=== PATIENT | female | born 1955 | race Caucasian/White ===

== ENCOUNTER → 2020-03-10 13:31 | Outpatient (CLI) | payer OTHER, SELFPAY ==
--- NOTE | ~2020-03-10 | DEXA_ITS ---
Bone Density Report Name: Jocelyn Bhatt Age: 64 Sex: Female Ethnicity: White Date of : 1955 Indication: postmenopausal; screening for osteoporosis; height loss; cancer; asthma or emphysema; hysterectomy; Referring Provider: Karen, Reji Study: Bone densitometry was performed. Exam Date: March 10, 2020 Accession number: [id number] Bone Density: Region BMD T-score Z-score Classification AP Spine (L1-L4) 0.859 -1.7 0.0 Osteopenia Femoral Neck (Left) 0.716 -1.2 0.3 Osteopenia Total Hip (Left) 0.789 -1.3 -0.1 Osteopenia Femoral Neck (Right) 0.701 -1.3 0.1 Osteopenia Total Hip (Right) 0.795 -1.2 0.0 Osteopenia Total Hip Mean 0.792 -1.3 -0.1 Osteopenia World Health Organization criteria for BMD impression classify patients as: Normal (T-score at or above -1.0), Osteopenia (T-score between -1.0 and -2.5), or Osteoporosis (T-score at or below -2.5). 10-year Fracture Risk(1): Major Osteoporotic Fracture 8.2% Hip Fracture 0.7% Reported Risk Factors: [place] (), Neck BMD=0.701, BMI=27.3 (1) FRAX(R) Version 3.08. Fracture probability calculated for an untreated patient. Fracture probability may be lower if the patient has received treatment. Clinical Information Provided by Patient: Has used the following medications: Vitamin D, Calcium Has the following medical conditions: Asthma or Emphysema, Cancer, Hysterectomy Patient maximum height was 65 Menopause Age: 43 Drinks caffeinated beverages Onset of menses at age 14 Number of children 5 Impression: The patient has low bone mass, based on the Total Spine T-score. The patient has an estimated ten-year risk of hip fracture of 0.7% and an estimated ten-year risk of major fracture of 8.2%, based on the WHO FRAX algorithm. Discussion: BONE DENSITY IS LOW AT ONE OR MORE SKELETAL SITES. This patient's lowest T-score is low at one or more skeletal sites. It meets the World Health Organization's (WHO) criteria for ?low bone mass? (T-score between -1.0 and -2.5). The patient's 10-year risk of fracture as calculated by FRAX is less than the threshold where pharmacological therapy is recommended by the National Osteoporosis Foundation (NOF). However, all treatment decisions require clinical judgment and consideration of individual patient factors, including patient preferences, comorbidities, previous drug use, risk factors not captured in the FRAX model (e.g., frailty, falls, vitamin D deficiency, increased bone turnover, interval significant decline in bone density) and possible under or overestimation of fracture risk by FRAX. The patient should follow a healthful lifestyle (good nutrition with adequate calcium and vitamin D, and appropriate weight-bearing exercise). Follow-Up: Consider repeating this study in 2 to 3 years to reassess
== END ==
PROVIDERS: PCP Physician Assistant; Visit Provider Physician Assistant
DX: Z78.0 Asymptomatic menopausal state (principal); M85.88 Other specified disorders of bone density and structure, other site; M85.852 Other specified disorders of bone density and structure, left thigh; M85.851 Other specified disorders of bone density and structure, right thigh
CPT/HCPCS: 77080

== ENCOUNTER → 2022-01-30 08:12 | Outpatient (CLI) | payer OTHER, SELFPAY ==
--- NOTE | ~2022-01-30 | XR_ITS ---
XR abdomen/kub 1V 01/30/2022 08:32 INDICATION: Left renal stone TECHNIQUE: KUB COMPARISON: CT dated 01/30/2022 FINDINGS: Bowel gas pattern is normal. There is no evidence of free air, mass, organomegaly, ascites or obstruction. No abnormal calculi are seen. There is a radiodensity in the right mid abdomen, lik kyler bowel content. There are surgical changes in the left lower chest and upper abdomen. The bones ap pear intact. IMPRESSION: 1: No acute abdominal abnormality identified. Reviewed, dictated and finalized at location B.
--- NOTE | ~2022-01-30 | CT_ITS ---
EXAMINATION: CT abdomen pelvis wo con DATE: 01/30/2022 08:26 INDICATION: Left renal stone. Frequent UTI. TECHNIQUE: Computed tomography (CT) of the head was performed without intravenous contrast. The dose- length product was 327.65 mGy-cm. Automated exposure control and iterative reconstruction technique w ere employed. COMPARISON: None FINDINGS: No significant pleural or pericardial effusion. Heart size normal. Large hiatal hernia with organoaxial volvulus. No obstruction. Mild atherosclerosis without aneurysm. Small fat-containing le ft inguinal hernia. No free air or free fluid. The liver, spleen, pancreas, adrenal glands and kidneys are unremarkable. Gallbladder is present. Non obstructive bowel gas pattern. There is abnormal thickening of the sigmoid colon. No definite obstruc tion. No renal stones or hydronephrosis. IMPRESSION: 1. Abnormal thickening of the sigmoid colon, suspicious for colitis, most likely infectious or inflam matory. 2: Large hiatal hernia with organoaxial gastric volvulus. Reviewed, dictated and finalized at location B. IMPRESSION: 1. Abnormal thickening of the sigmoid colon, suspicious for colitis, most likel y infectious or inflammatory. 2: Large hiatal hernia with organoaxial gastric volvulus.
== END ==
PROVIDERS: PCP Physician Assistant; Visit Provider Urology
DX: N20.0 Calculus of kidney (principal); K44.9 Diaphragmatic hernia without obstruction or gangrene; R93.3 Abnormal findings on diagnostic imaging of other parts of digestive tract
CPT/HCPCS: 74018; 74176

== ENCOUNTER 2024-04-27 08:47 | Outpatient (CLI) | payer OTHER, SELFPAY ==
--- NOTE | 2024-04-27 | EST_ITS ---
Patient Info Name: Jocelyn Bhatt Age: 69 years : 1955 Gender: Female Ht: 64 in Wt: 163 lbs BSA: 1.85 m2 HR: 101 bpm BP: 148 / 83 mmHg Exam Date: 04/27/2024 9:52 AM Exam Location: [facility] Patient Status: Outpatient Admit Date: 04/27/2024 Staff Ordering Physician: KarenBetsy PA-C Attending Provider: KarenBetsy PA-C Exercise Technologist: Kim [place] [employer] Nurse: Nirmala Anguiano APN Exam Type: CA stress felisha w NM Study Info A regadenoson stress test was performed. Summary 1. No abnormal ST/T wave changes diagnostic of ischemia with Lexiscan. 2. Please correlate with nuclear medicine images, reported separately. 3. Stress test supervised by Nirmala Anguiano NP. Stress test interpreted by Micheline Guthrie MD. Protocol: Lexiscan Stress ECG Details Stage: REST Duration (min): 2 min : 12 sec HR (bpm): 61 SBP (mmHg): 148 DBP (mmHg): 83 Stage: REST Duration (min): 28 min : 13 sec HR (bpm): 65 SBP (mmHg): 148 DBP (mmHg): 83 Stage: STAGE 1 Duration (min): 1 min : 0 sec HR (bpm): 75 SBP (mmHg): 148 DBP (mmHg): 83 Stage: RECOVERY Duration (min): 1 min : 0 sec HR (bpm): 83 SBP (mmHg): 148 DBP (mmHg): 83 Stage: RECOVERY Duration (min): 2 min : 0 sec HR (bpm): 82 SBP (mmHg): 171 DBP (mmHg): 86 Stage: RECOVERY Duration (min): 3 min : 0 sec HR (bpm): 81 SBP (mmHg): 171 DBP (mmHg): 85 Stage: RECOVERY Duration (min): 3 min : 17 sec HR (bpm): 80 SBP (mmHg): 171 DBP (mmHg): 85 Rest HR: 65 bpm Peak HR: 84 bpm Rest Sys BP: 148 mmHg Peak Sys BP: 171 mmHg Max Pred HR: 152 bpm % Max Pred HR: 55 % Target HR: 129 bpm Max RPP: 14,364 bpm*mmHg Total Time: 1 min : 0 sec Rest Cao BP: 83 mmHg Peak Cao BP: 86 mmHg Total Dose: 0.4 mg Resting ECG Sinus rhythm. Stress ECG Sinus rhythm. No abnormal ST/T wave changes diagnostic of ischemia with Lexiscan. Arrhythmias None. Report Signatures
--- NOTE | ~2024-04-27 | NM_ITS ---
EXAMINATION: NM felisha stress w perfusion DATE: 04/27/2024 11:10 INDICATION: Dyspnea on exertion TECHNIQUE: Rest images were obtained following intravenous administration of 9.7 mCi Tc99m tetrofosmi n (Myoview). The patient was infused intravenously with Lexiscan (Regadenoson). Then, 30.2 mCi Tc99m tetrofosmin (Myoview) was administered intravenously, and stress images were obtained. Stress images were obtained in both the supine and prone positions. Data was reconstructed into short axis and hori zontal and vertical long axis SPECT images. Gated SPECT images were also obtained. COMPARISON: None. FINDINGS: There is a mild reversible perfusion defect at the apical, apical anterior and apical later al segments on the nongated post stress images obtained in the supine position. This normalizes in th e apical lateral segment and nearly normalizes in the apical and apical anterior segments on the gate d and prone nongated images equivocal for mild ischemia. There is normal left ventricular chamber si ze, wall motion and ejection fraction. Left ventricular ejection fraction measures >70%. IMPRESSION: 1. Possible small mild reversible perfusion defect equivocal for ischemia at the apical and small por tion of the anteroapical segments. 2. Left ventricular ejection fraction measuring >70%. Reviewed, dictated and finalized at location B. TECHNIC TEACHER IMPRESSION: 1. Possible small mild reversible perfusion defect equivocal for ischemia at th e apical and small portion of the anteroapical segments. 2. Left ventricular ejection fraction measuring >70%.
== END 2024-04-27 08:48 | disposition home or self-care (01) ==
PROVIDERS: PCP Physician Assistant; Visit Provider Physician Assistant
DX: I50.1 Left ventricular failure, unspecified (principal)
CPT/HCPCS: 78452; 93017; A9502; J2785

== ENCOUNTER 2024-10-28 13:33 | Outpatient (CLI) | payer OTHER, SELFPAY ==
--- NOTE | ~2024-10-28 | US_ITS ---
Renal-Bladder ultrasound Clinical History: Elevated creatinine Technique: Real-time sonographic imaging of the kidneys and urinary bladder was performed. Findings: The right kidney measures 9.7 cm in length and the left kidney measures 10.0 cm. There is n o hydronephrosis or renal calculus identified. Renal cortical echogenicity is within normal limits. N o renal mass lesion is identified. The urinary bladder is moderately distended at the time of this exam. No intraluminal echoes are iden tified. No abnormal wall thickening is seen. Impression: Unremarkable ultrasound of the kidneys and urinary bladder. Reviewed, dictated and finalized at location M. Impression: Unremarkable ultrasound of the kidneys and urinary bladder.
== END 2024-10-28 13:34 | disposition home or self-care (01) ==
LOC: MICIMG 13:34
PROVIDERS: PCP Physician Assistant; Visit Provider Physician Assistant
DX: R79.89 Other specified abnormal findings of blood chemistry (principal)
CPT/HCPCS: 76775

== ENCOUNTER 2024-12-22 13:29 | Outpatient (CLI) | payer MEDICARE, OTHER, SELFPAY ==
--- NOTE | ~2024-12-22 | DEXA_ITS ---
Bone Density Report Name: MARTINEZ HOPPER Age: 69 Sex: Female Ethnicity: White Date of : 1955 Indication: osteopenia; height loss; cancer; hysterectomy; Referring Provider: NITO, JUICE Study: Bone densitometry was performed. Exam Date: December 22, 2024 Accession number: [id number] Bone Density: Region BMD T-score Z-score Classification AP Spine(L1-L4) 0.809 -2.2 -0.1 Osteopenia Femoral Neck (Left) 0.599 -2.2 -0.5 Osteopenia Total Hip (Left) 0.733 -1.7 -0.3 Osteopenia Femoral Neck (Right) 0.605 -2.2 -0.5 Osteopenia Total Hip (Right) 0.720 -1.8 -0.4 Osteopenia Total Hip Mean 0.726 -1.8 -0.4 Osteopenia World Health Organization criteria for BMD impression classify patients as: Normal (T-score at or above -1.0), Osteopenia (T-score between -1.0 and -2.5), or Osteoporosis (T-score at or below -2.5). 10-year Fracture Risk(1): Major Osteoporotic Fracture 12% Hip Fracture 2.5% Reported Risk Factors: [place] (), Neck BMD=0.599, BMI=29.3 (1) FRAX(R) Version 3.08. Fracture probability calculated for an untreated patient. Fracture probability may be lower if the patient has received treatment. Previous Exams: -- Region Exam Age BMD T-score BMD Change BMD Change Date g/cm2 vs Baseline vs Previous -- AP Spine (L1-L4) 12/22/2024 69 0.809 -2.2 -5.8%* -5.8%* 03/10/2020 64 0.859 -1.7 Total Hip(Left) 12/22/2024 69 0.733 -1.7 -7.1%* -7.1%* 03/10/2020 64 0.789 -1.3 Total Hip(Right) 12/22/2024 69 0.720 -1.8 -9.5%* -9.5%* 03/10/2020 64 0.795 -1.2 -- *Denotes significance at 95% confidence level, LSC for AP Spine = 0.022 g/cm2, LSC for Total Hip = 0.027 g/cm2 Clinical Information Provided by Patient: Has used the following medications: Vitamin D Has the following medical conditions: Cancer, Hysterectomy, HX OF LEFT BREAST CA MASTECTOMY -2004 WITH RADIATION AND CHEMO Patient maximum height was 64.0 Menopause Age: 43 No regular weight bearing exercise Does not regularly consume dairy products Drinks caffeinated beverages Onset of menses at age 13 Number of children 5 Impression: The patient has low bone mass, based on the Total Spine T-score. The patient has an estimated ten-year risk of hip fracture of 2.5% and an estimated ten-year risk of major fracture of 12%, based on the WHO FRAX algorithm. The BMD for the AP Spine (L1-L4) decreased, changing by -5.8% since the last DXA exam. The BMD for the Total Hip(Left) decreased, changing by -7.1% since the last DXA exam. The BMD for the Total Hip(Right) decreased, changing by -9.5% since the last DXA exam. Discussion: BONE DENSITY IS LOW AT ONE OR MORE SKELETAL SITES. This patient's lowest T-score is low at one or more skeletal sites. It meets the World Health Organization's (WHO) criteria for ?low bone mass? (T-score between -1.0 and -2.5). The patient's 10-year risk of fracture as calculated by FRAX is less than the threshold where pharmacological therapy is recommended by the National Osteoporosis Foundation (NOF). However, all treatment decisions require clinical judgment and consideration of individual patient factors, including patient preferences, comorbidities, previous drug use, risk factors not captured in the FRAX model (e.g., frailty, falls, vitamin D deficiency, increased bone turnover, interval significant decline in bone density) and possible under or overestimation of fracture risk by FRAX. The patient should follow a healthful lifestyle (good nutrition with adequate calcium and vitamin D, and appropriate weight-bearing exercise). Follow-Up: Consider repeating this study in 2 years to reassess this patient's status, or sooner if there is some new clinical indication. Reported by: JYOTSNA on 12/22/2024 2:09:00 PM. Reviewed, dictated and finalized at location A.
== END 2024-12-22 13:30 | disposition home or self-care (01) ==
PROVIDERS: PCP Physician Assistant; Visit Provider Physician Assistant
DX: M85.89 Other specified disorders of bone density and structure, multiple sites (principal); Z78.0 Asymptomatic menopausal state
CPT/HCPCS: 77080